=== PATIENT | male | born 1940 | race Caucasian/White ===

== ENCOUNTER 2016-12-11 11:17 | Day surgery (SDC) | payer MEDICARE, BC ==
[~2016-12-11] VITALS: Ht 180.3 cm; Wt 97.8 kg
--- NOTE | ~2016-12-11 | OR ---
PATIENT'S NAME: MILES CAPPS [facility] AGE: 76 Y [address] ROOM: [place] [address] LOCATION: [facility] [place] ADMIT DATE: 12/11/2016 OR/Procedure Report DISCHARGE DATE: FAMILY PHYSICIAN: Romario Bender MD ATTENDING PHYSICIAN: Steffany Howard SURGEON: Steffany Howard MD GENERAL MACHINE OPERATOR: DATE OF PROCEDURE: 12/11/2016 PREOPERATIVE DIAGNOSIS: Severe urinary incontinence after surgery and radiation for prostate cancer. POSTOPERATIVE DIAGNOSIS: Severe urinary incontinence after surgery and radiation for prostate cancer. PROCEDURE: Placement of AMS 800 Artificial Urinary Sphincter. ANESTHESIA: Regional. INDICATION: This 76-year-old gentleman who is many years status post prostatectomy. He had some mild incontinence postoperatively. He then subsequently got radiation therapy and his incontinence progressed. It is now debilitating. He has failed oral agents and more conservative therapy. He presents at this time for artificial urinary sphincter. He has had urodynamics and cystoscopy in anticipation. We find no contraindication. He has high risk, and he understands that, based on his radiation therapy. PROCEDURE: Having obtained his informed consent, the patient was taken to the operating room. He was prepped and draped sterilely in a slightly abducted position. A penoscrotal incision was made. The Steffany retractor was placed. We came down onto the corpora. We then cleaned off the corpora posteriorly and identified the urethra and mobilized it as far caudad as we could get. It was stuck and the previous radiation was evident. We did get it dissected free. I got behind it with a right angle clamp. We measured it to 4 cm. A 4- cm cuff was selected, prepped and placed. It fits nicely. A right inguinal approach was made for the reservoir. A 6170 mL reservoir was placed. A 23 mL of saline was instilled. I tightened up the ring a bit to make sure it did not migrate. We created a dartos pouch for our pump. The pump was placed. Our connections were made. The tubing was buried. Further antibiotic irrigation was undertaken. The wound was then closed in layers. The patient tolerated the procedure well. Blood loss was minimal. No specimens were sent. At the conclusion, the sphincter was deactivated. The PATIENT'S NAME: MILES CAPPS [facility] AGE: 76 Y [address] ROOM: [place] [address] LOCATION: [facility] [place] ADMIT DATE: 12/11/2016 OR/Procedure Report DISCHARGE DATE: FAMILY PHYSICIAN: Romario Bender MD ATTENDING PHYSICIAN: Steffany Howard patient was returned to recovery awake, in stable condition. STEFFANY HOWARD MD [facility]/modl /[id number] CC: Romario Bender MD d: 12/11/164 t: 12/12/16 1457, OPERATIVE SUMMARY
[~2016-12-11 11:17] MED LIST: AMOXICILLIN500 MG PO; ASPIRIN EC81 MG PO; BENADRYL25 MG PO; COUMADIN ** IA5 MG PO; HYDROCODON-ACE1 EAC4 PO; LIPITOR40 MG PO; LOPRESSOR100 MG PO; LOVENOX 10100 MG/1 M SUB-Q; NORVASC10 MG PO; PRALUENT P75 MG/1 ML SUB-Q; STOOL SOFTENER100 M1 PO; TAB-A-VITE1 EACH PO; VALSARTAN-HCTZ1 EAC3 PO
[2016-12-11 12:58] LABS: INR - (THERAPEUTIC) 1.05 (0.92-1.07)
--- NOTE | 2016-12-12 03:38 | NUR ---
Significant Event: PT AAOX4. CLEAR LIQ DIET, AAT. TOLERATED LIQUIDS WELL THROUGHOUT SHIFT. 1PA WITH ACTIVITIES. WILL D/C TO HOME WITH CATHETER. IS TO START COUMADIN TODAY. AMBULATED IN ROOM WITH FAMILY AND VIRTUAL TECH SEVERAL TIMES THROUGHOUT SHIFT, TOLERATED WELL. VSS ON RA. RAYMOND IN PLACE AND PATENT. NORCO GIVEN X1, LAST AT 2022. NUCYNTA GIVEN X1, LAST AT 47. Follow up:
--- NOTE | 2016-12-12 09:05 | NUR ---
ORDERS RECEIVED FOR THE PATIENT TO BE DISCHARGED TO HOME TODAY. DISCHARGE INSTRUCTIONS WERE PREPARED BY THE VIRTUAL NURSE BUT WILL BE REVIEWED WITH THE PATIENT AT BEDSIDE BY THE PRIMARY NURSE TALON. THE FOLLOWING INFORMATION WAS PREPARED INCLUDING VIBHA TEACHING SHEETS PROVIDED: UROLUME PROTHESIS INSTRUCTIONS, TREATING INCONTINENCE-URETHRAL IMPLANTS, TREATING INCONTINENCE IN MEN, LEVAQUIN AND PREVENTING DVT. FOLLOW UP APPOINTMENT WAS MADE WITH DR. HOWARD ON December AT 10:15 AM.
[2016-12-12] MEDS ORDERED: NORCO 5-325 TA1 EACH PO (09:09)
[2016-12-12] MEDS ORDERED: LEVAQUIN500 MG PO (09:10)
[2016-12-12] MEDS ORDERED: ANTIBIOTIC OINT28 GM TOP (09:11)
--- NOTE | 2016-12-12 15:16 | NUR ---
Patient was dismissed home in stable condition. His geiger was removed by Dr. Parry prior to discharge. He had 2 incontinences of urine before he left with dressing and scrotum support changed with both episodes. Instructions were given to follow up with Dr Parry in the office at the scheduled time. IV was removed. Education given and signed by patient. He was then transferred out to his "ride" via wheelchair.
== END 2016-12-12 10:56 | disposition disaster alternative care site (69) ==
LOC: GSDC 11:17 → GMSU 11:17 → GSDC 13:00 → GMSU 17:02 → GSDC 12-12 10:56
PROVIDERS: Nurse Anesthetist, Certified Registered
PROC: 0TH Urinary System, Insertion (ICD-10-PCS; principal; 2016-12-11)
DX: R32 Unspecified urinary incontinence (principal); C61 Malignant neoplasm of prostate; I25.10 Atherosclerotic heart disease of native coronary artery without angina pectoris; I35.0 Nonrheumatic aortic (valve) stenosis; I10 Essential (primary) hypertension; E78.2 Mixed hyperlipidemia; E78.00 Pure hypercholesterolemia, unspecified; F17.201 Nicotine dependence, unspecified, in remission; D64.9 Anemia, unspecified; Z88.0 Allergy status to penicillin; Z88.2 Allergy status to sulfonamides; Z88.8 Allergy status to other drugs, medicaments and biological substances
CPT/HCPCS: A9270; C1815; J0690; J1580; J1956; J3370; J7120